=== PATIENT | female | born 1960 | race Caucasian/White ===

== ENCOUNTER → 2023-11-14 10:49 | Outpatient (REF) | payer BC, SELFPAY | LOC: HWRAD 10:49 | PROVIDERS: ATTENDING PHYSICIAN Obstetrics & Gynecology Gynecologic Oncology; FAMILY PHYSICIAN Internal Medicine; REFERRING PHYSICIAN Obstetrics & Gynecology Gynecology | DX: R19.03 Right lower quadrant abdominal swelling, mass and lump (principal) | CPT/HCPCS: 76830; 76856 ==

== ENCOUNTER → 2024-11-18 11:35 | Outpatient (REF) | payer MEDICARE, OTHER, SELFPAY | LOC: HWRAD 11:35 | PROVIDERS: ATTENDING PHYSICIAN Internal Medicine | DX: Z78.0 Asymptomatic menopausal state (principal) | CPT/HCPCS: 77080 ==

== ENCOUNTER → 2025-06-11 13:24 | Outpatient (REF) | payer MEDICARE, OTHER, SELFPAY | LOC: HWRAD 13:24 | PROVIDERS: ATTENDING PHYSICIAN Obstetrics & Gynecology Gynecology; FAMILY PHYSICIAN Internal Medicine | DX: R19.00 Intra-abdominal and pelvic swelling, mass and lump, unspecified site (principal); Z12.4 Encounter for screening for malignant neoplasm of cervix; N94.89 Other specified conditions associated with female genital organs and menstrual cycle | CPT/HCPCS: 76830; 76856 ==